=== PATIENT | male | born 1995 | race Two or more races ===

== ENCOUNTER 2019-05-20 13:00 | Emergency (ER) | payer MEDICAID, OTHER ==
[~2019-05-20] VITALS: Ht 177.8 cm; Wt 81.0 kg
--- NOTE | 2019-05-20 13:40 | NUR ---
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
--- NOTE | 2019-05-20 13:47 | NUR ---
PT CAME IN CO OF CHEST PAIN. 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 ADMITS TO USING COCAINE IN THE PAST WEEK. DENIES METH USE. ISABELLA ZAIDI, IS BEDSIDE.
[2019-05-20] MEDS ORDERED: ASPIRIN 325 MG TABLET ONE (13:53)
[2019-05-20] MEDS ORDERED: KETOROLAC 60 MG/2 ML ONE (13:59)
[2019-05-20] MEDS ORDERED: KETOROLAC 30 MG/1 ML IM ONE (14:00)
[2019-05-20] MEDS ORDERED: DIAZEPAM 5 MG TABLET ONE (14:05)
[2019-05-20 14:15] LABS: BASOPHILS # (AUTO) 0.03 x10^3/uL (0-0.1); BASOPHILS % (AUTO) 0 % (0-1); EOSINOPHILS # (AUTO) 0.04 x10^3/uL (0-0.4); EOSINOPHILS % (AUTO) 1 % (1-7); LYMPHOCYTES # (AUTO) 2.23 x10^3/uL (1-3.4); LYMPHOCYTES % (AUTO) 26 % (22-44); MD NO; MEAN CORPUSCULAR HEMOGLOBIN 31.3 pg (27.5-34.5); MEAN CORPUSCULAR HGB CONC 34.1 g/dL (33.2-36.2); MEAN CORPUSCULAR VOLUME 91.7 fL (81-97); MONOCYTES # (AUTO) 0.59 x10^3/uL (0.2-0.8); MONOCYTES % (AUTO) 7 % (2-9); NEUTROPHILS # (AUTO) 5.72 x10^3/uL (1.8-6.8); NEUTROPHILS % (AUTO) 66 % (42-75); PLATELET COUNT 246 x10^3/uL (130-400); RED BLOOD COUNT 5.51 x10^6/uL (4.38-5.82); RED CELL DISTRIBUTION WIDTH 12.9 % (9.4-14.8)
[2019-05-20 14:27] LABS: ALANINE AMINOTRANSFERASE 92 U/L (12-78); ALBUMIN 4.1 g/dL (3.4-5.0); ANION GAP 7 mmol/L (5-15); CALCIUM 9.2 mg/dL (8.5-10.1); CHLORIDE 103 mmol/L (98-107); CREATININE 1.22 mg/dL (0.7-1.3)
[2019-05-20] MEDS ORDERED: DIAZEPAM 5 MG TABLET PO ONE (14:30)
[2019-05-20 14:32] LABS: ALKALINE PHOSPHATASE 95 U/L (45-117); BILIRUBIN,TOTAL 0.7 mg/dL (0.2-1.0); TOTAL PROTEIN 7.2 g/dL (6.4-8.2); TROPONIN I < 0.015 ng/mL (0.000-0.045)
--- NOTE | 2019-05-20 14:40 | NUR ---
PT IS RESTING IN HOSPITAL BED. NO NEEDS AT THIS TIME. AWAITING LAB RESULTS
[2019-05-20 15:29] VITALS: BP 127/88
== END 2019-05-20 15:55 | disposition home or self-care (01) ==
LOC: ED 15:45
DX: R07.89 Other chest pain (principal); M54.5 Low back pain; M54.14 Radiculopathy, thoracic region; M40.209 Unspecified kyphosis, site unspecified
CPT/HCPCS: 36415; 71046; 72128; 80053; 83690; 84484; 85025; 85379; 93005; 96372; 99284; J1885